=== PATIENT | male | born 1980 | race Caucasian/White ===

== ENCOUNTER 2017-09-02 23:40 | Emergency (ER) | payer OTHER ==
[2017-09-03] MEDS ORDERED: SODIUM CHLORIDE 0.9% FLUSH 10 ML SOL IV PRN (00:08)
[2017-09-03] MEDS ORDERED: ASPIRIN 81 MG CHEWABLE CTB PO STA (00:08)
[2017-09-03] MEDS ORDERED: NITROGLYCERIN 0.4 MG TAB SL PRN (00:08)
[2017-09-03 01:14] VITALS: TEMP 97; O2SAT 100
[2017-09-03 01:27] VITALS: BP 135/77; PULSE 111; RESP 32
== END 2017-09-03 00:55 | disposition left against medical advice (07) | DRG 313 ==
LOC: ED 23:40
DX: R07.9 Chest pain, unspecified (principal); F19.10 Other psychoactive substance abuse, uncomplicated; R00.0 Tachycardia, unspecified
CPT/HCPCS: 93005; 99283

== ENCOUNTER 2018-01-01 21:30 | Emergency (ER) | payer OTHER ==
[2018-01-01 21:31] VITALS: O2SAT 100
[2018-01-01 22:09] VITALS: BP 128/74; PULSE 82; RESP 20; TEMP 98
== END 2018-01-01 22:00 | disposition home or self-care (01) | DRG 563 ==
LOC: ED 21:30
DX: S83.91XA Sprain of unspecified site of right knee, initial encounter (principal); W01.0XXA Fall on same level from slipping, tripping and stumbling without subsequent striking against object, initial encounter
CPT/HCPCS: 99282

== ENCOUNTER 2018-05-08 18:44 | Emergency (ER) | payer OTHER ==
[2018-05-08 19:10] VITALS: BP 158/98; PULSE 85; RESP 20; TEMP 96.8; O2SAT 96
[2018-05-08] MEDS ORDERED: LORAZEPAM 0.5 MG TAB PO ONE (19:16)
[2018-05-08] MEDS ORDERED: LORAZEPAM 0.5 MG TAB ONE (19:23)
[2018-05-08 20:23] LABS: ALBUMIN 3.8 gm/dl (3.4-5.0); BILIRUBIN,TOTAL 0.3 mg/dl (0.2-1.0); CALCIUM 8.7 mg/dl (8.5-10.1); CARBON DIOXIDE 25.9 mEq/L (21-32); CREATININE 0.76 mg/dl (0.80-1.30); POTASSIUM 3.9 mMol/L (3.5-5.1); TOTAL PROTEIN 7.3 gm/dl (6.4-8.2)
[2018-05-08 20:24] LABS: BASOPHILS % (AUTO) 1 % (0-3); EOSINOPHILS % (AUTO) 2 % (0-9); HEMATOCRIT 44 % (39-53); HEMOGLOBIN 15.1 gm/dl (13.5-17.7); LYMPHOCYTES % (AUTO) 23.2 % (10-50); MEAN CORPUSCULAR HEMOGLOBIN 28.7 pg (27.0-32.0); MEAN CORPUSCULAR VOLUME 84 fL (80-100); MONOCYTES % (AUTO) 6.7 % (0-12); NEUTROPHILS % (AUTO) 66.5 % (37-80)
[2018-05-08 20:55] LABS: AMPHETAMINES NEGATIVE (NEGATIVE); BARBITUATES NEGATIVE (NEGATIVE); BENZODIAZEPINES NEGATIVE (NEGATIVE); CANNABINOL(THC) NEGATIVE (NEGATIVE); COCAINE(COC) NEGATIVE (NEGATIVE); METHADONE NEGATIVE (NEGATIVE); METHAMPHETAMINES NEGATIVE (NEGATIVE); OPIATES(OP13) NEGATIVE (NEGATIVE); OXYCODONE(OXY) NEGATIVE (NEGATIVE); PROPOXYPHENE(PPX) NEGATIVE (NEGATIVE); TRICYCLIC ANTIDEPRESSANTS NEGATIVE (NEGATIVE)
== END 2018-05-08 21:18 | DRG 880 ==
LOC: ED 18:44
DX: F41.0 Panic disorder [episodic paroxysmal anxiety] (principal)
CPT/HCPCS: 36415; 80053; 80305; 85025; 85378; 99282; 99283; A9270-GY

== ENCOUNTER 2019-05-16 19:25 | Emergency (ER) | payer SELFPAY ==
[2019-05-16 19:33] VITALS: TEMP 98
[2019-05-16] MEDS ORDERED: LORAZEPAM 2 MG/ML SOL IM ONE (19:37)
[2019-05-16] MEDS ORDERED: LORAZEPAM 2 MG/ML SOL ONE (19:38)
[2019-05-16] MEDS ORDERED: CLONIDINE 0.1 MG TAB PO ONE (19:50)
[2019-05-16] MEDS ORDERED: MIRTAZAPINE 15 MG TAB PO ONE (19:50)
[2019-05-16] MEDS ORDERED: CLONIDINE 0.1 MG TAB ONE (19:54)
[2019-05-16] MEDS ORDERED: RISPERIDONE 1 MG TAB ONE (19:55)
[2019-05-16] MEDS ORDERED: MIRTAZAPINE 15 MG TAB ONE (19:56)
[2019-05-16] MEDS ORDERED: RISPERIDONE 1 MG TAB PO SCH (20:00)
[2019-05-16] MEDS ORDERED: HALOPERIDOL LACTATE 5 MG/ML SOL ONE (20:06)
[2019-05-16] MEDS ORDERED: HALOPERIDOL LACTATE 5 MG/ML SOL IM ONE (20:06)
[2019-05-16 23:25] VITALS: RESP 20
[2019-05-17 03:20] VITALS: BP 163/105; PULSE 104; O2SAT 96
== END 2019-05-16 23:57 | DRG 880 ==
LOC: ED 19:25
DX: F41.9 Anxiety disorder, unspecified (principal); Z02.89 Encounter for other administrative examinations
CPT/HCPCS: 96372; 99283; 99285; J1630; J2060; A9270-GY